=== PATIENT | female | born 1955 | race Caucasian/White ===

== ENCOUNTER 2017-09-26 06:36 | Day surgery (SDC) | payer OTHER ==
[2017-09-26] MEDS ORDERED: IODIXANOL LOCM 100 ML BTL (08:15)
[2017-09-26] MEDS ORDERED: LIDOCAINE 1% (MDV) 10 ML INJ (08:15)
[2017-09-26] MEDS ORDERED: HEPARIN 1000 UNITS/ML 10 ML INJ (08:15)
[2017-09-26] MEDS ORDERED: VERAPAMIL 5 MG INJ (08:16)
[2017-09-26] MEDS ORDERED: FENTAnyl 50 MCG/ML VIAL (08:16)
[2017-09-26] MEDS ORDERED: MIDAZOLAM 1 MG/ML 2 ML INJ (08:16)
[2017-09-26] MEDS ORDERED: NITROGLYCERIN (IC) 100 MCG/ML INJ (08:16)
== END 2017-09-26 14:01 | disposition other institution (70) ==
LOC: SDS 06:36
DX: I25.110 Atherosclerotic heart disease of native coronary artery with unstable angina pectoris (principal)
CPT/HCPCS: 82962; 93454